=== PATIENT | female | born 1950 | race Caucasian/White ===

== ENCOUNTER → 2019-08-18 12:16 | Outpatient (CLI) | payer BC, SELFPAY ==
--- NOTE | ~2019-08-18 | XR_ITS ---
EXAMINATION: XR hip RT min 2V DATE: 08/18/2019 12:32 INDICATION: Right hip pain. TECHNIQUE: 2 views of right hip were obtained. COMPARISON: None. FINDINGS: Bone alignment is normal. No fracture. There is mild right hip osteoarthritis. There is sev ere lumbar spondylosis. IMPRESSION: 1. Mild right hip osteoarthritis. Reviewed, dictated and finalized at location A.
== END ==
DX: M16.11 Unilateral primary osteoarthritis, right hip (principal)
CPT/HCPCS: 73502

== ENCOUNTER 2020-09-09 18:01 | Emergency (ER) | payer BC, SELFPAY ==
--- NOTE | ~2020-09-09 | XR_ITS ---
EXAMINATION: XR shoulder LT min 2V DATE: 09/09/2020 18:40 INDICATION: Left shoulder pain. Fall. TECHNIQUE: 4 views of left shoulder were obtained. COMPARISON: None. FINDINGS: There is a comminuted fracture of proximal left humerus. There is a nondisplaced fracture c omponent at the greater tuberosity. At the surgical neck, the distal fracture fragment demonstrates 7 mm medial displacement, impaction, and 17 degrees lateral angulation. The glenohumeral joint is norm al. 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 IMPRESSION: 1. Comminuted two-part fracture of proximal left humerus. Reviewed, dictated and finalized at location A.
[2020-09-09 18:13] VITALS: BP 141/80; PULSE 88; RESP 20; TEMP 36.9; O2SAT 100
[2020-09-09 20:37] VITALS: BP 161/85; PULSE 84; RESP 18; TEMP 36.7; O2SAT 99
--- NOTE | 2020-09-09 20:42 | ED.UPPEXIN ---
HPI - Extremity Injury (Upper) General Chief Complaint: Extremity Injury, Upper Stated Complaint: fell- l shoulder pain Time Seen by Provider: 09/09/20 20:30 Source: patient Mode of arrival: ambulatory Limitations: no limitations History of Present Illness HPI narrative: 70-year-old female States she was visiting her [id number] and when she was leaving and walking out to the car she tripped and fell and landed on her knee and whacked her left shoulder as well She is ambulatory without any problems but her shoulder hurts anytime she moves it, she did not hit her head, there is no loss of consciousness, there is no other injuries or neurologic symptoms and there was no dizziness or anything that triggered the fall Related Data Home Medications Medication Instructions Recorded Confirmed atorvastatin 09/09/20 duloxetine mg PO 09/09/20 levothyroxine 09/09/20 trazodone 09/09/20 Allergies Allergy/AdvReac Type Severity Reaction Status Date / Time Penicillins Allergy Mild Unknown Verified 09/09/20 18:17 Review of Systems Review of Systems: All systems reviewed & are unremarkable except as noted in HPI and below Constitutional: Constitutional: Denies weakness Cardiovascular: Cardiovascular: Denies chest pain Respiratory: Respiratory: Denies dyspnea Musculoskeletal: Musculoskeletal: Reports arthralgias and Reports joint swelling Neurologic: Denies focal weakness and Denies numbness Hematologic/Lymphatic: Hematologic/Lymphatic: Denies easy bleeding and Denies easy bruising Exam Const: General: cooperative, no acute distress and alert Orientation/consciousness: patient oriented x3 (alert) HENMT: Head: normal to inspection, normocephalic, atraumatic, no contusions and no hematomas Ears: external ears normal General nose exam: no epistaxis Eyes: Conjunctivae: conjunctivae normal EOM: EOMs intact bilaterally Neck: Neck: normal visual inspection, supple and no JVD Resp: Effort & Inspection: normal respiratory effort and not labored Auscultation: other (BS =) Skin: General skin exam: normal color and no rashes or lesions noted Neuro: General: patient oriented x3 (alert) and moves all extremities Speech: normal speech Extrem: Other: Mild swelling left shoulder, not grossly deformed, no bruising, guards any motion due to pain, clavicle and AC are nontender, normal range of motion of the elbow hand and wrist, intact sensation and distal pulses She has an abrasion on her left knee but full range of motion and no swelling Psych: Affect: normal affect Course Course Emergency Course: Her is seen Dr. Pfeiffer before and she will call his office for follow-ups Vital Signs Vital signs: Vital Signs Temperature 36.9 C 09/09/20 18:13 Pulse Rate 88 09/09/20 18:13 Respiratory Rate 20 09/09/20 18:13 Blood Pressure 141/80 H 09/09/20 18:13 Pulse Oximetry 100 09/09/20 18:13 Temperature 36.7 C 09/09/20 20:37 Pulse Rate 84 09/09/20 20:37 Respiratory Rate 18 09/09/20 20:37 Blood Pressure 161/85 H 09/09/20 20:37 Pulse Oximetry 99 09/09/20 20:37 MDM - Extremity Injury (Upper) Imaging Data Radiologist's impression: ITS Impressions Shoulder X-Ray 09/09/20 18:43 IMPRESSION: 1. Comminuted two-part fracture of proximal left humerus. Discharge Plan Discharge Clinical Impression: Fracture of proximal end of left humerus Patient Disposition: Home, Self-Care Condition: Stable Instructions: Proximal Humerus Fracture (ED), Shoulder Immobilizer (ED) Prescriptions: New hydrocodone-acetaminophen 5-325 mg tablet 1 tablet PO Q6H PRN (Reason: pain) Qty: 20 RF: 0 No Action atorvastatin 20 mg tablet RF: 0 trazodone 100 mg tablet RF: 0 levothyroxine 50 mcg tablet RF: 0 duloxetine 60 mg capsule,delayed release(DR/EC) PO RF: 0 Follow-up/Referrals: ADITYA,John MONTERROSO. [Primary Care Pr
[2020-09-09] MEDS: HYDROcodone/acetaminophen (*CRX) 5-325 MG TABLET 1 TAB PO (21:18)
[2020-09-09 21:29] VITALS: BP 154/82; PULSE 89; RESP 18; TEMP 36.8; O2SAT 100
== END 2020-09-09 21:32 | disposition home or self-care (01) ==
PROVIDERS: Emergency Provider Emergency Medicine; PCP Internal Medicine
DX: S42.222A 2-part displaced fracture of surgical neck of left humerus, initial encounter for closed fracture (principal); W01.0XXA Fall on same level from slipping, tripping and stumbling without subsequent striking against object, initial encounter
CPT/HCPCS: 73030; 99284; A9270

== ENCOUNTER → 2021-02-06 09:45 | Outpatient (CLI) | payer BC, SELFPAY ==
--- NOTE | ~2021-02-06 | CT_ITS ---
EXAMINATION: CT lung screening DATE: 02/06/2021 10:09 INDICATION: Personal history of nicotine dependence, current smoker with 45 pack year history TECHNIQUE: Computed tomography (CT) of the chest was performed without intravenous contrast. The dose -length product (DLP) was 58.98 mGy-cm. Automated exposure control and iterative reconstruction techn Mapplasue were employed. COMPARISON: None FINDINGS: There is mild emphysema. No suspicious lung nodules are identified. The lungs are free of a cute opacities. There is no pleural effusion or pneumothorax. No pathologically enlarged thoracic lym ph nodes are identified. The heart size is normal. Calcified coronary artery atherosclerosis is noted . There is mild thoracic spondylosis. IMPRESSION: 1. Lung-RADS category 1: Negative. Continue annual screening with noncontrast low-dose chest CT in 12 months. Reviewed, dictated and finalized at location A. IMPRESSION: 1. Lung-RADS category 1: Negative. Continue annual screening with noncontrast l ow-dose chest CT in 12 months.
--- NOTE | ~2021-02-06 | MM_ITS ---
EXAMINATION: MM screening katelynn BI w cornelius HISTORY: Screening TECHNIQUE: Craniocaudal and mediolateral oblique 3-D tomosynthesis images were obtained and synthetic 2-D images were generated. CAD analysis was submitted and interpreted. COMPARISON: Comparison to multiple prior studies sequentially, with oldest reviewed study dated 02/24. BREAST PARENCHYMAL COMPOSITION: The breasts are heterogeneously dense, which may obscure small masses . FINDINGS: There are developing asymmetries in the right breast which are scattered by fibroglandular content, best seen on CC view. The left breast is stable without evidence for malignancy. IMPRESSION: 1. Developing right breast asymmetries. 2. Additional mammographic views and possible breast ultrasound are recommended. BI-RADS Category 0: Incomplete: Needs additional imaging evaluation. Reviewed, dictated and finalized at location A. IMPRESSION: 1. Developing right breast asymmetries. 2. Additional mammographic views and possible breast ultrasound are recommended . BI-RADS Category 0: Incomplete: Needs additional imaging evaluation.
== END ==
DX: Z12.31 Encounter for screening mammogram for malignant neoplasm of breast (principal); Z12.2 Encounter for screening for malignant neoplasm of respiratory organs; F17.210 Nicotine dependence, cigarettes, uncomplicated; R92.8 Other abnormal and inconclusive findings on diagnostic imaging of breast
CPT/HCPCS: 71271; 77063; 77067

== ENCOUNTER → 2021-03-08 08:26 | Outpatient (CLI) | payer BC, SELFPAY ==
--- NOTE | ~2021-03-08 | MMUS_ITS ---
EXAMINATION: MM diagnostic katelynn RT w cornelius, US breast RT complete HISTORY: Follow-up right breast asymmetries TECHNIQUE: Additional 3-D tomosynthesis images of the right breast were performed and synthetic 2-D i mages were generated. CAD analysis was submitted and interpreted. High resolution complete right brittany st ultrasound was performed. COMPARISON: Comparison to multiple prior studies sequentially, with oldest reviewed study dated 12/2012. BREAST PARENCHYMAL COMPOSITION: The breasts are heterogenously dense, which may obscure small masses. FINDINGS: MAMMOGRAPHIC FINDINGS: There are no suspicious masses, calcifications or architectural distortion in the right breast to sug gest malignancy. Right breast asymmetries compress with spot and mediolateral views. ULTRASOUND: Complete right breast ultrasound: There are small cysts, largest measuring 3 mm at 3:00 near the areo la. No suspicious solid masses to suggest malignancy. IMPRESSION: 1. No evidence for malignancy in the right breast. 2. Routine yearly screening mammogram and regular clinical breast examination are recommended. BI-RADS Category 2: Benign finding(s). Reviewed, dictated and finalized at location A. IMPRESSION: 1. No evidence for malignancy in the right breast. 2. Routine yearly screening mammogram and regular clinical breast examination a re recommended. BI-RADS Category 2: Benign finding(s).
== END ==
DX: R92.8 Other abnormal and inconclusive findings on diagnostic imaging of breast (principal)
CPT/HCPCS: 76641; 77061; 77065; G0279

== ENCOUNTER → 2022-12-25 13:14 | Outpatient (CLI) | payer OTHER, SELFPAY ==
--- NOTE | ~2022-12-25 | MM_ITS ---
EXAMINATION: MM screening katelynn BI w cornelius HISTORY: Screening TECHNIQUE: Craniocaudal and mediolateral oblique 3-D tomosynthesis images were obtained and synthetic 2-D images were generated. CAD analysis was submitted and interpreted. COMPARISON: Comparison to multiple prior studies sequentially, with oldest reviewed study dated 04/08. BREAST PARENCHYMAL COMPOSITION: The breasts are heterogeneously dense, which may obscure small masses FINDINGS: There is no evidence of suspicious mass, calcification, or architectural distortion to sugg est malignancy in either breast. There has been no suspicious interval change. IMPRESSION: 1. No mammographic evidence of malignancy. 2. Recommend routine screening mammography in one year. BI-RADS Category 1: Negative Reviewed, dictated and finalized at location A.
--- NOTE | ~2022-12-25 | DEXA_ITS ---
Bone Density Report Name: NABILA MORTENSEN Age: 72 Sex: Female Ethnicity: White Date of : 1950 Indication: osteopenia; postmenopausal Referring Provider: Howard Klein Study: Bone densitometry was performed. Exam Date: December 25, 2022 Accession number: [id number] Bone Density: Region BMD T-score Z-score Classification AP Spine (L1-L4) 1.013 -0.3 1.9 Normal Femoral Neck (Left) 0.642 -1.9 0.0 Osteopenia Total Hip (Left) 0.767 -1.4 0.2 Osteopenia Femoral Neck (Right) 0.601 -2.2 -0.3 Osteopenia Total Hip (Right) 0.713 -1.9 -0.3 Osteopenia Total Hip Mean 0.740 -1.7 -0.1 Osteopenia World Health Organization criteria for BMD impression classify patients as: Normal (T-score at or above -1.0), Osteopenia (T-score between -1.0 and -2.5), or Osteoporosis (T-score at or below -2.5). 10-year Fracture Risk(1): Major Osteoporotic Fracture 13% Hip Fracture 3.0% Reported Risk Factors: [place] (), Neck BMD=0.601, BMI=25.3 (1) FRAX(R) Version 3.08. Fracture probability calculated for an untreated patient. Fracture probability may be lower if the patient has received treatment. Previous Exams: Region Exam Age BMD T-score BMD Change BMD Change Date g/cm2 vs Baseline vs Previous AP Spine(L1-L4) 12/25/2022 72 1.013 -0.3 -0.046* 0.046* 04/20/2018 68 0.966 -0.7 -0.092* -0.023* 04/18/2016 66 0.990 -0.5 -0.069* -0.084* 02/24/2011 60 1.073 0.2 0.015 0.015 10/04/2008 58 1.059 0.1 Total Hip(Left) 12/25/2022 72 0.767 -1.4 -0.072* -0.030* 04/20/2018 68 0.797 -1.2 -0.042* -0.022 04/18/2016 66 0.819 -1.0 -0.021 -0.005 02/24/2011 60 0.824 -1.0 -0.015 -0.015 10/04/2008 58 0.839 -0.8 Total Hip(Right) 12/25/2022 72 0.713 -1.9 -0.082* -0.017 04/20/2018 68 0.730 -1.7 -0.065* -0.018 04/18/2016 66 0.748 -1.6 -0.047* 0.001 02/24/2011 60 0.748 -1.6 -0.047* -0.047* 10/04/2008 58 0.795 -1.2 *Denotes significance at 95% confidence level, LSC for AP Spine = 0.022 g/cm2, LSC for Total Hip = 0.027 g/cm2 Clinical Information Provided by Patient: Patient maximum height was 67.5 Menopause Age: 46 No regular weight bearing exercise Does not regularly consume dairy products Drinks caffeinated beverages Onset of menses at age 10 Number of children 2
== END ==
DX: Z12.31 Encounter for screening mammogram for malignant neoplasm of breast (principal); M81.0 Age-related osteoporosis without current pathological fracture; M85.852 Other specified disorders of bone density and structure, left thigh; M85.851 Other specified disorders of bone density and structure, right thigh
CPT/HCPCS: 77063; 77067; 77080